=== PATIENT | male | born 1985 | race African-American/Black ===

== ENCOUNTER 2019-03-23 10:38 | Emergency (ER) | payer OTHER ==
--- NOTE | 2019-03-23 11:51 | ER Document Report ---
ED Medical Screen (RME) - General Chief Complaint: Dizziness Stated Complaint: HEAD PAIN Time Seen by Provider: 03/23/19 11:46 Mode of Arrival: Ambulatory Information source: Patient Notes: 33-year-old male presents to ED for dizziness and headache. He states he got hit in the head by a swinging door on Tuesday. About 30 minutes later he became dizzy and had concentration issues. He states he did not have any loss of consciousness he had some mild nausea later in the day but none at the time of the incident. He has had no vomiting. No nausea today. States he has been able to use his arms but they feel heavier. He states he is being treated for mood disorders. His NIH was negative except for he could not remember the 3 objects. He states he would normally not be able to remember the 3 objects. I have greeted and performed a rapid initial assessment of this patient. A comprehensive ED assessment and evaluation of the patient, analysis of test results and completion of medical decision making process will be conducted by an additional ED providers. - Related Data Allergies/Adverse Reactions: ziprasidone [From Geodon] Allergy (Verified 03/23/19 10:40) Physical Exam - Vital signs Vitals: Temp Pulse Resp BP Pulse Ox 98.5 F 88 18 145/83 H 96 03/23/19 10:54 03/23/19 10:54 03/23/19 10:54 03/23/19 10:54 03/23/19 10:54 Course - Vital Signs Vital signs: Temp Pulse Resp BP Pulse Ox 98.5 F 88 18 145/83 H 96 03/23/19 10:54 03/23/19 10:54 03/23/19 10:54 03/23/19 10:54 03/23/19 10:54
--- NOTE | 2019-03-23 12:19 | ER Document Report ---
ED Dizziness/Weakness - General Chief Complaint: Dizziness Stated Complaint: HEAD PAIN Time Seen by Provider: 03/23/19 11:46 Mode of Arrival: Ambulatory - HPI Patient complains to provider of: Dizziness - pt. was hit in head 2 days ago by heavy swinging door at work. Since then he has been having issues with dizziness and concentration issues. There was no LOC at the time - Related Data Allergies/Adverse Reactions: ziprasidone [From Geodon] Allergy (Verified 03/23/19 10:40) Past Medical History - General Information source: Patient - Social History Smoking Status: Never Smoker Frequency of alcohol use: Social Drug Abuse: None Family History: None Patient has suicidal ideation: No Patient has homicidal ideation: No Review of Systems - Review of Systems Constitutional: No symptoms reported EENT: No symptoms reported Cardiovascular: No symptoms reported Respiratory: No symptoms reported Gastrointestinal: No symptoms reported Neurological/Psychological: See HPI, Other - dizziness -: Yes All other systems reviewed and negative Physical Exam - Vital signs Vitals: Temp Pulse Resp BP Pulse Ox 98.5 F 88 18 145/83 H 96 03/23/19 10:54 03/23/19 10:54 03/23/19 10:54 03/23/19 10:54 03/23/19 10:54 - General General appearance: Appears well In distress: None - HEENT Head: Normocephalic, Atraumatic Pharynx: Normal Neck: Normal - Respiratory Respiratory status: No respiratory distress Breath sounds: Normal - Cardiovascular Rhythm: Regular Heart sounds: Normal auscultation Murmur: No - Abdominal Inspection: Normal Bowel sounds: Normal Tenderness: Nontender - Neurological Neuro grossly intact: Yes Cognition: Normal Orientation: AAOx4 Speech: Normal Cranial nerves: Normal Cerebellar coordination: Normal Motor strength normal: LUE, RUE, LLE, RLE Additional motor exam normals: Equal as400 developer Babinski reflex: Normal (flexor plantar) Sensory: Normal Course - Re-evaluation Re-evalutation: 03/23/19 13:33 pt. felt somewhat better at time of d/c -- expressed desire to go home with father - Vital Signs Vital signs: Temp Pulse Resp BP Pulse Ox 98.5 F 88 22 H 125/86 H 98 03/23/19 10:54 03/23/19 10:54 03/23/19 12:44 03/23/19 12:44 03/23/19 12:44 - Laboratory Result Diagrams: 03/23/19 12:00 03/23/19 12:00 Laboratory results interpreted by me: 03/23/19 12:00 Creatine Kinase 205 H Total Protein 8.3 H Albumin 5.2 H - EKG Interpretation by Me EKG shows normal: Sinus rhythm Rate: Normal Rhythm: NSR - nsr without acute change Discharge - Discharge Clinical Impression: Dizziness Condition: Stable Disposition: HOME, SELF-CARE Instructions: Dizziness ([facility]) Additional Instructions: rest, return if worse Referrals: MO ARRIETA MD [ACTIVE STAFF] - Follow up as needed
[2019-03-23 12:36] LABS: APPEARANCE,URINE CLEAR; BILIRUBIN,URINE NEGATIVE (NEGATIVE); COLOR,URINE STRAW; GLUCOSE, URINE NEGATIVE (NEGATIVE); KETONES,URINE NEGATIVE (NEGATIVE); LEUKOCYTE ESTERASE,URINE NEGATIVE (NEGATIVE); NITRITE,URINE NEGATIVE (NEGATIVE); PROTEIN,URINE NEGATIVE (NEGATIVE); URINE SPECIFIC GRAVITY 1.003; UROBILINOGEN,URINE NEGATIVE mg/dL (<2.0)
[2019-03-23 12:41] LABS: INTERNATIONAL RATION (INR) 0.89
[2019-03-23 12:42] LABS: PARTIAL THROMBOPLASTIN TIME 30.1 SEC (23.5-35.8)
[2019-03-23 12:44] LABS: ABSOLUTE BASOPHILS # (AUTO) 0.1 10^3/uL (0.0-0.2); ABSOLUTE LYMPHOCYTES (AUTO) 2.1 10^3/uL (0.5-4.7); ABSOLUTE MONOCYTES (AUTO) 0.7 10^3/uL (0.1-1.4); ABSOLUTE NEUT (AUTO) 6.3 10^3/uL (1.7-8.2); BASOPHILS % (AUTO) 0.6 % (0-2); EOSINOPHILS % (AUTO) 0.4 % (0-6); HEMATOCRIT 43.8 % (37.9-51.0); HEMOGLOBIN 14.8 g/dL (13.5-17.0); LYMPHOCYTES % (AUTO) 22.7 % (13-45); MEAN CORPUSCULAR HEMOGLOBIN 31.2 pg (27.0-33.4); MEAN CORPUSCULAR HGB CONC 33.9 g/dL (32.0-36.0); MEAN CORPUSCULAR VOLUME 92 fl (80-97); MONOCYTES % (AUTO) 7.2 % (3-13); PLATELET COUNT 304 10^3/uL (150-450); RED BLOOD COUNT 4.76 10^6/uL (4.35-5.55); RED CELL DISTRIBUTION WIDTH 13.1 % (11.5-14.0); SEGMENTED NEUTROPHILS % (AUTO) 69.1 % (42-78); TOTAL CELLS COUNTED % (AUTO) 100 %; WHITE BLOOD COUNT 9.1 10^3/uL (4.0-10.5)
[2019-03-23 12:52] LABS: ALBUMIN 5.2 g/dL (3.5-5.0); ALKALINE PHOSPHATASE 66 U/L (38-126); ANION GAP 12 (5-19); ASPARTATE AMINO TRANSFERASE 51 U/L (17-59); BILIRUBIN,DIRECT 0.2 mg/dL (0.0-0.4); BILIRUBIN,TOTAL 0.5 mg/dL (0.2-1.3); BLOOD UREA NITROGEN 7 mg/dL (7-20); CALCIUM 10.2 mg/dL (8.4-10.2); CARBON DIOXIDE 29 mmol/L (22-30); CHLORIDE 99 mmol/L (98-107); CREATINE KINASE 205 U/L (55-170); GLUCOSE 104 mg/dL (75-110); POTASSIUM 4.7 mmol/L (3.6-5.0); TOTAL PROTEIN 8.3 g/dL (6.3-8.2)
--- NOTE | 2019-03-23 12:52 | RADIOLOGY REPORT (SQ) ---
EXAM DESCRIPTION: CT HEAD WITHOUT COMPLETED DATE/TIME: 03/23/2019 12:33 pm REASON FOR STUDY: trauma COMPARISON: None. TECHNIQUE: Axial images acquired through the brain without intravenous contrast. Images reviewed wi th bone, brain and subdural windows. Additional sagittal and coronal reconstructions were generated. Images stored on PACS. All CT scanners at this facility use dose modulation, iterative reconstruction, and/or weight based d osing when appropriate to reduce radiation dose to as low as reasonably achievable (ALARA). [facility]: Dose Right [facility]: CareDose [facility]: Dose Right [facility]: Teradose 4D [facility]: Sovex RADIATION DOSE: CT Rad equipment meets quality standard of care and radiation dose reduction techniq ues were employed. CTDIvol: 53.2 mGy. DLP: 991 mGy-cm. mGy. LIMITATIONS: None. FINDINGS: There is no acute intracranial hemorrhage, vascular territorial infarct, extra-axial fluid collection, mass effect, or midline shift. There is no effacement of cerebral sulci or basal subara chnoid cisterns. The mitchell-white matter differentiation is preserved. The caliber of the ventricles is concordant with the degree of sulcation ; there is no ventriculomegaly. The orbits and globes are intact. The paranasal sinuses and mastoid air cells are clear. There is n o fracture of the calvarium. IMPRESSION: No acute intracranial abnormality. EVIDENCE OF ACUTE STROKE: NO. COMMENT: Quality ID # [id number]: Final reports with documentation of one or more dose reduction techniques (e.g., Automated exposure control, adjustment of the mA and/or kV according to patient size, use of iterative reconstruction technique) TECHNICAL DOCUMENTATION: JOB ID: [id number] [employer]- All Rights Reserved Reading location - IP/workstation name: [facility]
[2019-03-23 12:53] LABS: ALCOHOL < 10 mg/dL (NONE DETECTED)
[2019-03-23 13:03] LABS: CREATINE KINASE MB 1.48 ng/mL (<4.55)
[2019-03-23 13:05] LABS: TROPONIN I < 0.012 ng/mL
[2019-03-23 13:43] VITALS: BP 123/80
--- NOTE | 2019-03-23 23:09 | EKG REPORT ---
SEVERITY:- NORMAL ECG - SINUS RHYTHM : Confirmed by: Dalia Jain MD 23-Mar-2019 23:09:02
== END 2019-03-23 13:52 | disposition home or self-care (01) ==
LOC: ER 10:38
DX: R42 Dizziness and giddiness (principal); W22.8XXA Striking against or struck by other objects, initial encounter; Y99.0 Civilian activity done for income or pay; Z88.8 Allergy status to other drugs, medicaments and biological substances
CPT/HCPCS: 36415; 70450; 80053; 80307; 81001; 82550; 82553; 83690; 84484; 85025; 85610; 85730; 93005; 93010; 99284